=== PATIENT | male | born 1990 | race Caucasian/White ===

== ENCOUNTER 2024-10-22 11:46 | Emergency (ER) | payer MEDICAID ==
[2024-10-22 12:13] LABS: BASOPHILS ABSOLUTE AUTO 0.03 K/uL (0.00-0.20); BASOPHILS PERCENT AUTO 0.4 % (0.0-2.0); EOSINOPHILS ABSOLUTE AUTO 0.09 K/uL (0.00-0.50); EOSINOPHILS PERCENT AUTO 1.3 % (0.0-5.0); IMMATURE GRAN ABSOLUTE AUTO 0.01 10^3/uL (0.00-0.04); IMMATURE GRAN PERCENT AUTO 0.1 % (0.0-0.4); LYMPHOCYTES ABSOLUTE AUTO 1.03 K/uL (0.50-3.50); LYMPHOCYTES PERCENT AUTO 14.5 % (10.0-50.0); MONOCYTES ABSOLUTE AUTO 0.40 K/uL (0.00-1.00); MONOCYTES PERCENT AUTO 5.6 % (2.0-14.0); NEUTROPHILS ABSOLUTE AUTO 5.54 K/uL (1.40-7.00); NEUTROPHILS PERCENT AUTO 78.1 % (45.0-80.0); PLATELET COUNT,PLT 191 K/uL (150-350); RED BLOOD CELL COUNT 5.32 M/uL (4.33-5.41); RED CELL DISTRIBUTION WIDTH 11.8 % (11.2-14.1); WHITE BLOOD CELL COUNT,WBC 7.1 K/uL (4.0-10.2)
[2024-10-22] MEDS: Sodium Chloride 0.9% 10 ML Syringe FLUSH PRN (12:24)
[2024-10-22] MEDS: diphenhydrAMINE 50 MG/ML SDV IVPUSH ONE (12:24)
[2024-10-22] MEDS: Prochlorperazine 10 MG/2 ML SDV IV ONE (12:24)
[2024-10-22 12:33] LABS: INR 1.0 (0.9-1.1)
[2024-10-22 12:43] LABS: ALANINE AMINOTRANSFERASE,ALT 39 U/L (12-78); ASPARTATE AMNIOTRANSFERASE,AST 20 U/L (15-37); BILIRUBIN TOTAL 0.3 mg/dL (0.2-1.0); BLOOD UREA NITROGEN,BUN 17 mg/dL (7-18); CARBON DIOXIDE,CO2 24.0 mmol/L (21.0-32.0); CHLORIDE,CL 106 mmol/L (98-107); CREATININE 0.85 mg/dL (0.51-1.17); GLUCOSE RANDOM 101 mg/dL (70-99); POTASSIUM,K 3.8 mmol/L (3.5-5.1); PROTEIN TOTAL,TP 7.5 g/dL (6.4-8.2); SODIUM,NA 141 mmol/L (136-145)
[2024-10-22 12:50] LABS: ESTIMATED GFR 119 mL/min (>=60)
== END 2024-10-22 13:34 | disposition home or self-care (01) ==
LOC: LL.ED 11:46
DX: G43.909 Migraine, unspecified, not intractable, without status migrainosus (principal); Z79.899 Other long term (current) drug therapy
CPT/HCPCS: 36415; 71046; 80053; 83735; 84484; 85025; 85610; 93005; 93010; 96374; 96375; 99284; 99285-25; J0780; J1200